=== PATIENT | female | born 1950 | race Hispanic/Latino ===

== ENCOUNTER 2024-02-07 14:39 | Observation (INO) | payer OTHER ==
[2024-02-07 15:06] LABS: Absolute Basophils 0.1 K/uL (0-0.5); Absolute Eosinophils 0.1 K/uL (0-0.5); Absolute Lymphocytes (CBC) 1.6 K/uL (0.7-4.9); Absolute Monocytes 0.3 K/uL (0.1-1.3); Absolute Neutrophil 5.2 K/uL (1.8-8.0); Basophils % 0.9 % (0-1.3); Eosinophils % 1.6 % (0-4.4); Hematocrit 35.5 % (36.0-45.0); Hemoglobin 11.9 g/dL (12.0-15.0); Lymphocytes % 21.4 % (15.3-44.8); MCHC 33.5 g/dL (32.0-36.0); MCV 92.6 fL (80-100); MPV 7.4 fL (7.6-11.3); Monocytes % 4.5 % (3.3-12.3); Neutrophils % 71.6 % (41.7-73.7); Nucleated Red Blood Cells % 0.3 % (0-0); Platelets 201 thou/uL (152-406); RBC Red Blood Cell Count 3.83 M/uL (3.86-4.86); Red Cell Distribution Width 13.3 % (12.1-15.2)
[2024-02-07] MEDS ORDERED: NA CHLORIDE 0.9% 1,000 ML ONE (15:22)
[2024-02-07 15:29] LABS: Anion Gap 5.1 mEq/L (5.0-15.0); Potassium 4.1 mEq/L (3.5-5.1)
[2024-02-07 15:36] LABS: Troponin High Sensitivity 162.7 pg/mL (<58.9)
[2024-02-07] MEDS ORDERED: ASPIRIN 81 MG CHEWABLE TABLET ONE (16:10)
--- NOTE | 2024-02-07 16:16 | ER ---
Nurse's Notes [facility] Name: Mike Loya Age: 73 yrs Sex: Female : 1950 Arrival Date: 02/07/2024 Time: 14:39 Bed 5 Private MD: Diagnosis: NSTEMI;Syncope Near;Troponin Elevation;Kidney Disease Presentation: 02/06 15:00 Chief complaint: EMS states: pt was at the chiropractor clinic and had near syncopal iw episode ,was cool, clammy, pale on scene, BP was 60's systolic, gave 550 mL NS , pt thought maybe she got overheated , the vehicle she rode in does not have AC. 15:02 Coronavirus screen: At this time, the client does not indicate any symptoms associated iw with coronavirus-19. Ebola Screen: Patient negative for fever greater than or equal to 101.5 degrees Fahrenheit, and additional compatible Ebola Virus Disease symptoms Patient denies exposure to infectious person. Patient denies travel to an Ebola-affected area in the 21 days before illness onset. No symptoms or risks identified at this time. Initial Sepsis Screen: Does the patient meet any 2 criteria? No. Patient's initial sepsis screen is negative. Does the patient have a suspected source of infection? No. Patient's initial sepsis screen is negative. Risk Assessment: Do you want to hurt yourself or someone else? Patient reports no desire to harm self or others. Onset of symptoms was February 07, 2024. Care prior to arrival: Medication(s) given: Normal saline infusion, 500 mL, IV initiated. 18 GA, in the left antecubital area, Glucose check: 153. 15:02 Method Of Arrival: EMS: [facility] iw 15:02 Acuity: GUY 3 iw Triage Assessment: 15:00 General: Appears in no apparent distress. Behavior is calm, cooperative. Pain: Denies iw pain. Historical: - Allergies: 15:04 No Known Allergies; iw - PMHx: 15:04 CVA; Hypertensive disorder; iw Screenin:43 [facility] ED Fall Risk Assessment (Adult) History of falling in the last 3 months, iw including since admission No falls in past 3 months (0 pts) Confusion or Disorientation No (0 pts) Intoxicated or Sedated No (0 pts) Impaired Gait Mobility Assist Device Used Yes (1 pt) Altered Elimination No (0 pt) Score/Fall Risk Level 0 - 2 = Low Risk. Abuse screen: Denies threats or abuse. Denies injuries from another. Nutritional screening: No deficits noted. Tuberculosis screening: No symptoms or risk factors identified. Assessment: 15:26 Reassessment: Patient appears in no apparent distress at this time. Patient and/or iw family updated on plan of care and expected duration. Pain level reassessed. Patient is alert, oriented x 3, equal unlabored respirations, skin warm/dry/pink. warm blanket given. 15:43 Reassessment: Patient appears in no apparent distress at this time. Patient and/or iw family updated on plan of care and expected duration. Pain level reassessed. Vital Signs: 15:02 BP 113 / 51; Pulse 67; Resp 16; Temp 97.1; Pulse Ox 100% on R/A; iw 15:26 BP 94 / 58; Pulse 65; Resp 16; Pulse Ox 96% on R/A; iw 15:42 BP 120 / 63; Pulse 63; Resp 16; Pulse Ox 98% on R/A; iw 16:10 BP 118 / 57; ec2 16:55 BP 129 / 97; Pulse 66; Resp 16; Pulse Ox 100% on R/A; iw 17:06 BP 129 / 97; ec2 ED Course: 14:39 Patient arrived in ED. iw 14:40 Nathan Montalvo MD is Attending Physician. ec2 14:59 Carmen Aguilar, RN is Primary Nurse. iw 15:03 Triage completed. iw 15:05 Arm band placed on. iw 15:26 Maintain EMS IV. Dressing intact. Good blood return noted. Site clean \T\ dry. Gauge \T\ iw site: 18 LAC. 16:16 Jj Melendez MD is Hospitalizing Provider. ec2 16:17 CXR XRAY In Process Unspecified. EDMS 18:05 No provider procedures requiring assistance completed. Patient admitted, IV remains in iw place. Administered Medications: 15:25 Drug: NS 0.9% IV 2000 ml IV at 1 bolus Per protocol; 1000 mL bolus Route: IV; Rate: 1 iw bolus; Site: left antecubital; 16:00 Follow up: IV Status: Completed infusion iw 16:11 Drug: Aspirin PO Chewable Tablet 324 mg PO once; 81 mg tablets x 4 Route: PO; ld1 18:00 Follow up: Response: No adverse reaction iw Medication: 18:04 VIS not applicable for this client. iw Outcome: 16:16 Decision to Hospitalize by Provider. ec2 18:04 Admitted to Tele accompanied by nurse, room 412, Report called to Nydia iw 18:04 Instructed on the need for admit, 18:05 Patient left the ED. iw Signatures: Dispatcher [employer] Carmen Johnston RN RN iw Madonna Steiner RN RN ld1 Nathan Montalvo MD MD ec2
--- NOTE | 2024-02-07 16:16 | EDPHYS ---
Physician Documentation [facility] Name: Mike Loya Age: 73 yrs Sex: Female : 1950 Arrival Date: 02/07/2024 Time: 14:39 Bed 5 Private MD: ED Physician Nathan Montalvo HPI: 02/06 14:47 This 73 yrs old Female presents to ER via Unassigned with complaints of Heat ec2 Exposure. 14:47 Patient arrives today for evaluation of possible heat exposure. States that she has not ec2 on her condition truck, states she has been on her truck and subsequently felt warm and subsequently felt lightheaded like she was going to pass out. No chest pain, no difficulty breathing, no nausea or vomiting. History gathered from EMS as well, reports that she had blood pressure with systolics in the 90s subsequently gave the patient crystalloid. Patient reports poor p.o. intake today.. Historical: - Allergies: 15:04 No Known Allergies; iw - PMHx: 15:04 CVA; Hypertensive disorder; iw ROS: 14:47 Constitutional: as per hpi ec2 Exam: 14:47 Constitutional: GEN: NAD Head: atraumatic Eyes: EOMI Ears: External ears are ec2 normal. CV: regular rate LUNGS: no respiratory distress ABD: non-distended SKIN: no evidence of rashes MSK: no evidence of trauma NEURO: moves all extremities equally Vital Signs: 15:02 BP 113 / 51; Pulse 67; Resp 16; Temp 97.1; Pulse Ox 100% on R/A; iw 15:26 BP 94 / 58; Pulse 65; Resp 16; Pulse Ox 96% on R/A; iw 15:42 BP 120 / 63; Pulse 63; Resp 16; Pulse Ox 98% on R/A; iw 16:10 BP 118 / 57; ec2 16:55 BP 129 / 97; Pulse 66; Resp 16; Pulse Ox 100% on R/A; iw 17:06 BP 129 / 97; ec2 MDM: 14:40 Patient medically screened. ec2 14:47 Data reviewed: vital signs. ED course: Patient arrives today for evaluation of possible ec2 heat exposure. Examination remarkable for well-appearing nontoxic dividual is otherwise in no acute distress with a reassuring examination. Will obtain lab work, EKG. Differential diagnosis includes anemia, dehydration, rhabdomyolysis, electrolyte disturbances.. 14:50 ED course: EKG independently reviewed and interpreted by me, shows ventricularly paced ec2 rhythm with a rate of 64. . 15:38 ED course: Metabolic profile shows renal dysfunction with a creatinine 1.62 and a GFR ec2 of 34, troponin elevated at 162. CBC shows slight anemia. Will give patient full dose aspirin, admit for lightheadedness, NSTEMI. . 17:05 ED course: MDM: Differential diagnosis as documented above in ED course; All lab tests ec2 ordered and reviewed as documented above; Independent interpretation of tests: EKG as above; History gathered from independent historian: Yes, EMS; Discuss inpatient hospitalization: Yes; I discussed the case with: Hospitalist . 02/06 14:46 Order name: Basic Metabolic Panel; Complete Time: 15:37 ec2 02/06 14:46 Order name: CBC with Diff; Complete Time: 15:13 ec2 02/06 14:46 Order name: Troponin HS; Complete Time: 15:37 ec2 02/06 14:46 Order name: CK; Complete Time: 15:37 ec2 02/06 15:37 Order name: CXR XRAY; Complete Time: 16:44 ec2 02/06 14:46 Order name: Cardiac monitoring; Complete Time: 15:26 ec2 02/06 14:46 Order name: EKG - Nurse/Tech; Complete Time: 14:59 ec2 02/06 14:46 Order name: IV Saline Lock; Complete Time: 14:59 ec2 02/06 14:46 Order name: Labs collected and sent; Complete Time: 14:59 ec2 02/06 14:46 Order name: O2 Per Protocol; Complete Time: 14:59 ec2 02/06 14:46 Order name: O2 Sat Monitoring; Complete Time: 14:59 ec2 Administered Medications: 15:25 Drug: NS 0.9% IV 2000 ml IV at 1 bolus Per protocol; 1000 mL bolus Route: IV; Rate: 1 iw bolus; Site: left antecubital; 16:00 Follow up: IV Status: Completed infusion iw 16:11 Drug: Aspirin PO Chewable Tablet 324 mg PO once; 81 mg tablets x 4 Route: PO; ld1 18:00 Follow up: Response: No adverse reaction iw Disposition Summary: 02/07/24 16:16 Hospitalization Ordered Notes: Hospitalization Status: Inpatient Admission ec2 Provider: Jj Melendez ec2 Location: Telemetry/MedSurg (Inpatient) ec2 Condition: Stable ec2 Problem: new ec2 Symptoms: have improved ec2 Bed/Room Type: Standard ec2 Room Assignment: 412(02/07/24 16:57) 6 Diagnosis - NSTEMI ec2 - Syncope Near ec2 - Troponin Elevation ec2 - Kidney Disease ec2 Discharge Instructions: - Discharge Summary Sheet ec2 - Heat Exhaustion ec2 Forms: - Medication Reconciliation Form ec2 - SBAR form ec2 - Leadership Thank You Letter ec2 Critical care time excluding procedures: 16:19 Critical care time: Bedside Care: 30 minutes, Consultation: 5 minutes. Total time: 35 ec2 minutes Signatures: Dispatcher [employer] EDCarmen Radford RN RN Madonna Steiner RN RN ld1 Rosalie Simmons 6 Nathan Montalvo MD MD ec2 Corrections: (The following items were deleted from the chart) 14:47 14:47 BASIC METABOLIC PANEL+C.LAB.BRZ ordered. EDMS EDMS 14:47 14:47 CBC+H.LAB.BRZ ordered. EDMS EDMS 14:47 14:47 Troponin High Sensitivity+C.LAB.BRZ ordered. EDMS EDMS 14:47 14:47 CREATINE PHOSPHOKINASE+C.LAB.BRZ ordered. EDMS EDMS 16:57 16:16 ec2 6
--- NOTE | 2024-02-07 16:39 | RAD REPORT ---
EXAM DESCRIPTION: Lalit Single View02/07/2024 4:15 pm CLINICAL HISTORY: Cough COMPARISON: none FINDINGS: The lungs appear clear of acute infiltrate. The heart is normal size. Pacemaker is in lary ce Mild elevation right hemidiaphragm
--- NOTE | 2024-02-07 17:30 | P.HP ---
Certification for Inpatient Patient admitted to: Observation With expected LOS: <2 Midnights Patient will require the following post-hospital care: None Practitioner: I am a practitioner with admitting privileges, knowledge of patient current condition, hospital course, and medical plan of care. Services: Services provided to patient in accordance with Admission requirements found in Title 42 Section 412.3 of the Code of Federal Regulations Patient History Date of Service: 02/07/24 Reason for admission: Near syncope, elevated troponin History of Present Illness: 73-year-old female with history of chronic systolic congestive heart failure, large ischemic stroke affecting her right side in her speech about 4 years ago, suspected atrial fibrillation on chronic anticoagulation, seizure disorder, hypertension and hyperlipidemia presented to the emergency department for chief complaint of near syncopal episode. She/her family reports that she had her speech therapy, physical therapy and Occupational Therapy this morning and subsequently was going to the chiropractor, her vehicle was without air conditioning and she felt like she was becoming overheated, when she walked into the chiropractor's office she had a near syncopal episode and fell like she was going to pass out. They laid her on the floor and 911 was called, upon arrival of EMS blood pressure was 60/40, patient was given IV fluids and transported to the emergency department, her first blood pressure in the emergency department was 90/50. Patient also reports she may have been a bit behind on her fluid intake today. Patient was evaluated in the emergency department her labs are significant for elevated high sensitive troponin 162.7, creatinine 1.62 GFR 34 glucose 185, Ch est xray was negative for acute findings. Patient feels better at this time, denies prodrome symptoms including chest pain, palpitations or severe headache. Will admit patient under observation for near syncope, hypotension, elevated troponin. - Past Medical/Surgical History -: Chronic systolic congestive heart failure -: Suspect atrial fibrillation on chronic anticoagulation -: History of ischemic stroke 2020 right-sided weakness/speech difficulty -: History of seizure disorder -: Hypertension -: Hyperlipidemia -: Hysterectomy -: Left knee surgery Psychosocial/ Personal History: Lives at home with her family - Family History Family History: Reviewed- Non-Contributory - Social History Alcohol use: No CD- Drugs: No Caffeine use: Yes Place of Residence: Home Review of Systems 10-point ROS is otherwise unremarkable Cardiovascular: Light Headedness, Other (Near syncope) Physical Examination - Physical Exam General: Alert, In no apparent distress, Oriented x3 HEENT: Atraumatic, PERRLA, EOMI Neck: Supple, 2+ carotid pulse no bruit, No LAD, Without JVD or thyroid abnormality Respiratory: Clear to auscultation bilaterally, Normal air movement Cardiovascular: Regular rate/rhythm, Normal S1 S2 Gastrointestinal: Normal bowel sounds, No tenderness Musculoskeletal: No tenderness Integumentary: No rashes Neurological: Normal gait, Normal speech, Normal tone, Other (Residual right- sided weakness from previous CVA, speech slowed, mildly slurred) - Studies Laboratory Data (last 24 hrs) 02/07/24 02/07/24 14:58 14:58 WBC 7.30 Hgb 11.9 L Hct 35.5 L Plt Count 201 Sodium 139 Potassium 4.1 BUN 29 H Creatinine 1.62 H Glucose 185 H Assessment and Plan - Plan Assessment: Near syncope Elevated troponin SINDHU versus CKD Chronic systolic congestive heart failure Suspect history of atrial fibrillation on chronic anticoagulation Seizure disorder Hypertension Hyperlipidemia Plan: Near syncope Elevated troponin Was hypotensive in the field, improved with IV fluids Possibly got overheated/dehydrated Continue IVF overnight Trend tropnins, monitor on tele Echo and cardiology consult in place Orthostatics ordered Home meds restarted with the exception of enalapril 10 mg daily, spironolactone 25 mg daily as her blood pressure was running low and mild SINDHU/CKD SINDHU versus CKD Continue gentle IVF, recheck in AM Hold STEFANI until renal function re evaluated Chronic systolic congestive heart failure Does not appear overloaded at this time, continue gentle IV fluids overnight Take spironolactone 25 mg daily at home, holding for now Suspect history of atrial fibrillation on chronic anticoagulation Not confirmed, pacemaker/defibrillator in place Takes metoprolol succinate 50 mg daily and Eliquis 5 mg twice daily which have been continued Rhythm is currently paced Seizure disorder Continue Keppra, lamotrigine Hypertension Hold enalapril 10 mg daily, spironolactone 5 mg daily for now double pressure improved and renal function stable Hyperlipidemia Atorvastatin 40 mg continue DVT PPX:Continue eliquis Code status:Full Discharge Plan: Home Plan to discharge in: 24 Hours - Advance Directives Does patient have a Living Will: No Does patient have a Durable POA for Healthcare: No - Code Status/Comfort Care Code Status Assessed: Yes (Full) Critical Care: No Time Spent Managing Pts Care (In Minutes): 70
[2024-02-07 18:24] VITALS: BMI 32.8
[2024-02-07] MEDS ORDERED: ONDANSETRON 4 MG/2 ML VIAL IV PRN (18:26)
[2024-02-07] MEDS ORDERED: ACETAMINOPHEN 325 MG TABLET PO PRN (18:26)
[2024-02-07] MEDS: lamoTRIgine 100 MG TAB PO SCH (20:21)
[2024-02-07] MEDS: levETIRAcetam 500 MG TAB PO SCH (20:21)
[2024-02-07] MEDS: APIXABAN 5 MG TABLET PO SCH (20:22)
[2024-02-07] MEDS: ATORVASTATIN 40 MG TAB PO SCH (20:22)
[2024-02-07] MEDS: NA CHLORIDE 0.9% 1,000 ML IV SCH (20:22)
[2024-02-08] MEDS: METOPROLOL XL 50 MG TAB PO SCH (06:17)
[2024-02-08 07:08] LABS: Absolute Eosinophils 0.2 K/uL (0-0.5); Absolute Lymphocytes (CBC) 2.4 K/uL (0.7-4.9); Absolute Monocytes 0.6 K/uL (0.1-1.3); Absolute Neutrophil 3.4 K/uL (1.8-8.0); Basophils % 0.5 % (0-1.3); Eosinophils % 3.2 % (0-4.4); Hematocrit 32.2 % (36.0-45.0); Lymphocytes % 35.8 % (15.3-44.8); MCH 31.6 pg (27.0-35.0); MCHC 34.3 g/dL (32.0-36.0); MPV 7.9 fL (7.6-11.3); Monocytes % 8.7 % (3.3-12.3); Neutrophils % 51.8 % (41.7-73.7); Nucleated Red Blood Cells % 0.1 % (0-0); Platelets 176 thou/uL (152-406); RBC Red Blood Cell Count 3.49 M/uL (3.86-4.86); Red Cell Distribution Width 13.4 % (12.1-15.2)
[2024-02-08 07:25] LABS: Anion Gap 4.9 mEq/L (5.0-15.0); Potassium 3.9 mEq/L (3.5-5.1); Thyroid Stimulating Hormone 0.778 uIU/mL (0.358-3.740)
[2024-02-08] MEDS: ASPIRIN EC 81 MG TAB PO SCH (09:21)
--- NOTE | 2024-02-08 14:38 | ECHO ---
HEIGHT: 5 ft 4 in WEIGHT: 191 lb 0 oz DATE OF STUDY: 02/08/[address]: Martir Alvarez NP 2-DIMENSIONAL: YES M.MODE: YES DOPPLER: YES COLOR FLOW: YES TDS: NO PORTABLE: YES DEFINITY: NO BUBBLE STUDY: NO DIAGNOSIS: NSTEMI, CHF, NEAR SYNCOPE CARDIAC HISTORY: CATHERIZATION: NO SURGERY: NO PROSTHETIC VALVE: NO PACEMAKER: YES MEASUREMENTS (cm) DIASTOLIC (NORMALS) SYSTOLIC (NORMALS) IVSd 0.9 (0.6-1.2) LA Diam 3.8 (1.9-4.0) LVEF 31% LVIDd 5.0 (3.5-5.7) LVIDs 4.3 (2.0-3.5) %FS 15% LVPWd 1.1 (0.6-1.2) Ao Diam 2.7 (2.0-3.7) 2 DIMENSIONAL ASSESSMENT: RIGHT ATRIUM: NORMAL LEFT ATRIUM: NORMAL RIGHT VENTRICLE: NORMAL, PACEMAKER LEFT VENTRICLE: MODERATELY DILATED TRICUSPID VALVE: MILD TRICUSPID REGURGITATION MITRAL VALVE: MILD MITRAL REGURGITATION PULMONIC VALVE: NORMAL AORTIC VALVE: NORMAL PERICARDIAL EFFUSION: NONE AORTIC ROOT: NORMAL LEFT VENTRICULAR WALL MOTION: MODERATE GLOBAL HYPOKINESIS. DOPPLER/COLOR FLOW: GRADE I DIASTOLIC DYSFUNCTION. COMMENTS: 1. MODERATE TO SEVERE REDUCED LEFT VENTRICULAR SYSTOLIC FUNCTION. EJECTION FRACTION 30%. MODERATE GLOBAL HYPOKINESIS. 2. GRADE I DIASTOLIC DYSFUNCTION. 3. MILD MITRAL REGURGITATION, MILD TRICUSPID REGURGITATION. TECHNOLOGIST: [facility]
--- NOTE | 2024-02-08 14:39 | P.CNS ---
Date of Consult: 02/08/24 Chief Complaint: Near syncope, elevated troponin History of Present Illness: Patient with PMH of HFrEF s/p ICD placement, atrial fibrillation, HTN, HLD, Seizure and stroke presented with near syncope, patient denies chest pain, no SOB, no palpitations, no syncope. Allergies codeine Adverse Reaction (Verified 02/07/24 18:26) Itching/Hives/Rash - Past Medical/Surgical History Diabetic: No -: Chronic systolic congestive heart failure -: Suspect atrial fibrillation on chronic anticoagulation -: History of ischemic stroke 2020 right-sided weakness/speech difficulty -: History of seizure disorder -: Hypertension -: Hyperlipidemia -: Hysterectomy -: Left knee surgery Psychosocial/ Personal History: Lives at home with her family - Social History Alcohol use: No CD- Drugs: No Caffeine use: Yes Place of Residence: Home Review of Systems 10-point ROS is otherwise unremarkable Physical Examination Temp Pulse Resp BP Pulse Ox 96.9 F 65 16 132/70 98 02/08/24 12:00 02/08/24 12:00 02/08/24 12:00 02/08/24 12:00 02/08/24 12:00 General: Alert, In no apparent distress HEENT: Atraumatic, PERRLA, Mucous membr. moist/pink, EOMI, Sclerae nonicteric Neck: Supple, 2+ carotid pulse no bruit, No LAD, Without JVD or thyroid abnormality Respiratory: Clear to auscultation bilaterally, Normal air movement Cardiovascular: Regular rate/rhythm, Normal S1 S2 Gastrointestinal: Normal bowel sounds, No tenderness Musculoskeletal: No tenderness Integumentary: No rashes Neurological: Normal gait, Normal speech, Normal tone, Normal affect Lymphatics: No axilla or inguinal lymphadenopathy Laboratory Data (last 24 hrs) 02/07/24 02/07/24 14:58 14:58 WBC 7.30 Hgb 11.9 L Hct 35.5 L Plt Count 201 Sodium 139 Potassium 4.1 BUN 29 H Creatinine 1.62 H Glucose 185 H - Problems (1) Near syncope Current Visit: Yes Status: Acute Plan: Most likely secondary to being volume depleted and orthostatic hypotension, no need for further cardiac work up. (2) Chronic combined systolic and diastolic heart failure Current Visit: Yes Status: Acute Plan: Patient looks euvolemic on exam, BP is soft. Continue Toprol XL 50 mg daily, continue to hold enalpril and spirnolactone and monitor BP, may be started slowly when she follow up with her vault installer. (3) Atrial fibrillation Current Visit: Yes Status: Acute Plan: currently paced, continue Eliquis 5 BID (4) NSTEMI (non-ST elevated myocardial infarction) Current Visit: Yes Status: Acute Plan: No chest pain, Troponin mild elevated with no delta, most likely type 2 ME from SINDHU. no need for further cardiac work up.
[2024-02-08 17:15] VITALS: O2SAT 98
--- NOTE | 2024-02-08 18:51 | P.DS ---
Admission Date: 02/07/24 Discharge Date: 02/08/24 Disposition: ROUTINE DISCHARGE Discharge Condition: FAIR Reason for Admission: Near syncope, elevated troponin Vital Signs/Physical Exam: Temp Pulse Resp BP Pulse Ox 97.2 F 63 16 150/81 H 98 02/08/24 16:00 02/08/24 16:00 02/08/24 16:00 02/08/24 16:00 02/08/24 16:00 Laboratory Data at Discharge: WBC 6.60 thou/uL (4.3-10.9) 02/08/24 06:00 Hgb 11.0 g/dL (12.0-15.0) L 02/08/24 06:00 Hct 32.2 % (36.0-45.0) L 02/08/24 06:00 Plt Count 176 thou/uL (152-406) 02/08/24 06:00 Sodium 143 mEq/L (136-145) 02/08/24 05:49 Potassium 3.9 mEq/L (3.5-5.1) 02/08/24 05:49 BUN 21 mg/dL (7-18) H 02/08/24 05:49 Creatinine 1.07 mg/dL (0.55-1.02) H 02/08/24 05:49 Glucose 90 mg/dL (74-106) 02/08/24 05:49 Triglycerides 144 mg/dL (<150) 02/08/24 05:49 Cholesterol 138 mg/dL (<200) 02/08/24 05:49 HDL Cholesterol 52 mg/dL (40-60) 02/08/24 05:49 Cholesterol/HDL Ratio 2.65 02/08/24 05:49 Home Medications: Apixaban [Eliquis] 5 mg PO BID 02/08/24 Aspirin [Aspirin EC 81 MG] 81 mg PO DAILY 30 Days #30 tab 02/08/24 Atorvastatin Calcium [Lipitor] 40 mg PO BEDTIME tab 02/08/24 Metoprolol Tartrate [Lopressor] 50 mg PO DAILY 30 Days #30 tab 02/08/24 lamoTRIgine [Lamictal*] 200 mg PO BID tab 02/08/24 levETIRAcetam [Keppra*] 750 mg PO TID tab 02/08/24 New Medications: Aspirin [Aspirin EC 81 MG] 81 mg PO DAILY 30 Days #30 tab Metoprolol Tartrate [Lopressor] 50 mg PO DAILY 30 Days #30 tab Physician Discharge Instructions: Mike Loya presented to the ED via EMS hypotensive (60/40), elevated troponin (162.7). ECHO was performed with EF 31% with mild mitral and tricuspid regurgitation. Dr. Domínguez was consulted, he records her elevated troponin as a type 2 MD from SINDHU, Euvolemic, and recommends stopping enalapril and aldactone. 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 Stay hydrated. 1. Please call and schedule a follow-up appointment with your PCP in 3-5 days - Please follow-up with your PCP for medication refills/adjustments 2. Please call and schedule a follow-up appointment with your software engineering project manager in one week. -Stop enalapril and aldactone 3. Continue heart healthy diet, stay hydrated 4. activity restrictions fall precaution while healing 5. Return to the ED if symptoms worsen New medications Toprol 50 mg PO daily Stop medications Enalapril aldactone Diet: AHA Activity: Fall precautions Followup: Aydin Domínguez MD [ACTIVE - CAN ADMIT] - Gerard Norman NP [Primary Care Provider] -
[2024-02-08 20:56] VITALS: BP 159/76; TEMP 97.1
--- NOTE | 2024-02-09 16:10 | EKG ---
Test Date: 2024-02-07 Test Time: 14:48:23 Priming Powder Premix Blender: SHARAD MEASUREMENT RESULTS: Intervals: Rate: 64 IA: 170 QRSD: 136 QT: 470 QTc: 484 Empire: P: 30 IA: 170 QRS: 3 T: -7 INTERPRETIVE STATEMENTS: Electronic ventricular pacemaker No previous ECG available for comparison Electronically Signed On 02-09-24 16:08:28 CDT by Aydin Domínguez
== END 2024-02-08 21:00 | disposition home or self-care (01) ==
LOC: ER 14:39 → ERHOLD 16:48 → 4TH 17:08
PROVIDERS: ADMIT Hospitalist; ATTEND Hospitalist
DX: N17.9 Acute kidney failure, unspecified (principal); I21.A1 Myocardial infarction type 2; I48.11 Longstanding persistent atrial fibrillation; I50.22 Chronic systolic (congestive) heart failure; R55 Syncope and collapse; R79.89 Other specified abnormal findings of blood chemistry; I10 Essential (primary) hypertension; E78.5 Hyperlipidemia, unspecified; R56.9 Unspecified convulsions; Z79.01 Long term (current) use of anticoagulants
CPT/HCPCS: 93005; 93306; 85025 ×2; 80048 ×2; 36415; 82550; 80061; 84443; 84484 ×3; 84439; 71045; 97116; 97161; 97530; 96360; 99285; J7030 ×3